=== PATIENT | male | born 1975 ===

== ENCOUNTER 2017-04-21 19:57 | Outpatient (CLI) | payer SELFPAY | END 2017-04-21 19:58 | disposition EMS.NT | LOC: EMS 19:57 | PROVIDERS: ATTEND Surgery | DX: Z04.1 Encounter for examination and observation following transport accident (principal); V49.9XXA Car occupant (driver) (passenger) injured in unspecified traffic accident, initial encounter; Y92.413 State road as the place of occurrence of the external cause ==